=== PATIENT | female | born 1975 | race Caucasian/White ===

== ENCOUNTER 2017-03-21 20:51 | Inpatient (IN) | payer MEDICARE ==
[~2017-03-21] VITALS: Ht 167.6 cm; Wt 104.2 kg
--- NOTE | ~2017-03-21 | OP ---
PATIENT NAME: ANA MARIA KIM MEDICAL RECORD: [id number] :71 LOCATION:D. D.2111 ADMISSION DATE:03/22/17 SURGEON: JAYASHREE DALY MD DATE OF OPERATION: 03/28/2017 REFERRING PHYSICIAN: Dr. Benson. PREOPERATIVE DIAGNOSIS: End-stage renal disease. POSTOPERATIVE DIAGNOSIS: End-stage renal disease. OPERATION PERFORMED: Ultrasound-guided and fluoroscopic guided insertion of a tunneled dialysis catheter via the right internal jugular vein. SURGEON: Jayashree Daly MD ANESTHESIA: Local MAC with monitoring and sedation per BIG DATA ENGINEER. PREOPERATIVE NOTE: Mr. Kim is a 41-year-old male that needs hemodialysis and he is brought to the operating room for insertion of a tunneled catheter. DESCRIPTION OF PROCEDURE: With the patient under MAC and supine position, the right neck was prepped and draped in a sterile manner. The right internal jugular vein was located with the duplex ultrasound and it was noted to be of normal caliber and had no filling defects and be fully compressible. The skin and subcutaneous tissues over at the base of the neck were anesthetized with lidocaine. A small incision was made and a needle and guidewire then placed directly into the vein with continuous ultrasound guidance. A guidewire was advanced on into the right atrium under fluoroscopy. Serial dilators were passed again under fluoroscopy and lastly a dilator peel-away sheath was inserted. I chose a 19-cm HemoSplit and inserted it through a remote entry site and pulled it through a subcutaneous tunnel to the cervical incision where it was then inserted through the peel-away sheath as that was removed again under fluoroscopy. The tip of the catheter was positioned nicely in the right atrium and there were no kinks or any other apparent complications on fluoroscopy. The catheter lumens were both accessed and aspirated, free return of blood confirmed. They were then flushed with saline and lastly heparin lock, clamped and capped. The catheter was sutured to the skin near the entry site with 2-0 Prolene. The cervical incision was closed with interrupted inverted 3-0 Vicryl and Dermabond glue and sterile dressings were applied. The patient was awakened and taken to the recovery room in stable condition having tolerated the procedure well. TRANSINT:[id number] Voice Confirmation ID: [id number] DOCUMENT ID: [id number] JAYASHREE DALY MD at 1019 CC: RAGHAV BENSON [id number] DICTATION DATE: 04/01/17 1421 ORDER SELECTOR: 04/01/17 1449 DIS IN 03/30/17 [place] [address] [facility], [facility]
--- NOTE | ~2017-03-21 | DS ---
PATIENT:ANA MARIA KIM :71 MEDICAL RECORD: [id number] DISCHARGE SUMMARY ADMISSION DATE: 03/22/17 DISCHARGE DATE: REASON FOR ADMISSION: This is a female born on 1975, 41 years old, with end-stage renal disease and started dialysis and had a HemoSplit catheter placed. HOSPITAL COURSE: She is going to come back for fistula placement. She is alert and oriented times 3. Normocephalic, atraumatic. Clear nares. Clear throat. No JVD. Decrease in her breath sounds at bases has improved. No bleeding. She has end-stage renal disease due to diabetes. She does take home medications. She will continue to take her doxycycline for a total of 7 days, Cardura at night, amlodipine 10 mg a day, Pepcid 20 mg b.i.d., tramadol 50 q.12 hours p.r.n. pain, Eliquis 2.5 mg b.i.d., and Coreg 25 mg b.i.d. We will follow up on her home dialysis unit in [place] for Sunday, Sunday and Sunday dialysis. Spent greater than 30 minutes. Discussed fluid restriction, returning for a fistula, saving her nondominant arm with no blood pressure checks, phlebotomy, IVs, or any needles to the arm. Renal ADA diet. Stable on discharge. TRANSINT:[id number] Voice Confirmation ID: [id number] DOCUMENT ID: [id number] MANISHA BROWN MD CC: [id number] DICTATION DATE: 03/30/17 0959 TURKEY ROLL MAKER: 03/30/17 1204 ADM IN [place] [id number] [place] [address]
[2017-03-22] MEDS ORDERED: ZANTAC150 MG PO (01:15)
[2017-03-22] MEDS ORDERED: LEVEMIR100 U/M1 SC (01:15)
[2017-03-22] MEDS ORDERED: NORVASC10 MG PO (01:16)
[2017-03-22] MEDS ORDERED: NEURONTIN600 MG PO (01:16)
[2017-03-22] MEDS ORDERED: ELIQUIS5 MG PO (01:16)
[2017-03-22] MEDS ORDERED: ZOLOFT100 MG PO (01:17)
[2017-03-22] MEDS ORDERED: LASIX40 MG PO (01:17)
[2017-03-22] MEDS ORDERED: KLOR-CON 1010 MEQ PO (01:18)
[2017-03-22] MEDS ORDERED: COREG25 MG PO (01:18)
[2017-03-22] MEDS ORDERED: ZOCOR20 MG PO (01:19)
[2017-03-22] MEDS ORDERED: HUMALOG 30100 UNITS/ SC (01:20)
[2017-03-22 02:48] LABS: ANION GAP 17.9 mmol/L (8-16); BILIRUBIN - TOTAL 0.14 mg/dL (0.2-1.3); CALCIUM 7.9 mg/dL (8.5-10.1); CARBON DIOXIDE 20.4 mmol/L (21.0-32.0); CREATININE - SERUM 7.8 mg/dL (0.6-1.3); PHOSPHOROUS 7.2 mg/dL (2.5-4.9); POTASSIUM - SERUM 4.3 mmol/L (3.5-5.1); PROTEIN - SERUM 6.3 g/dL (6.4-8.2)
[2017-03-22 03:15] LABS: APPEARANCE CLEAR (CLEAR); BILIRUBIN NEGATIVE (NEGATIVE); COLOR STRAW (YELLOW); GLUCOSE 250 mg/dL (NEGATIVE); KETONE NEGATIVE (NEGATIVE); NITRITE NEGATIVE (NEGATIVE); PROTEIN 3+ mg/dL (NEGATIVE); UROBILINOGEN NORMAL (NORMAL)
[2017-03-22 03:16] LABS: BACTERIA MODERATE /hpf (NONE SEEN); EPITHELIAL CELLS 0-5 /hpf (0-5); RED CELLS - URINE 0-5 /hpf (0-5); WHITE CELLS - URINE 0-5 /hpf (0-5)
[2017-03-22 03:24] VITALS: BP 190/90; BMI 34.3; BMI 37.2
[2017-03-22 03:40] LABS: CREATININE - URINE 46.1 mg/dL (30-125)
[2017-03-22] MEDS ORDERED: ULTRAM50 MG PO (05:00)
[2017-03-22 06:06] VITALS: BP 182/80
[2017-03-22 09:55] VITALS: BMI 36.5
[2017-03-22 10:07] LABS: HEMOGLOBIN A1C 7.1 % (4.8-6.0)
[2017-03-22 10:10] LABS: COMPLEMENT C4 21.2 mg/dL (17.4-52.2)
[2017-03-22 10:34] VITALS: Ht 167.6 cm; Wt 104.2 kg
[2017-03-22 10:46] VITALS: BP 142/52
[2017-03-22 11:01] LABS: ERYTHROCYTE SEDIMENTATION RATE 125 mm/hr (0-20)
[2017-03-22 12:00] VITALS: BP 162/084
[2017-03-22 15:23] LABS: CREATININE - URINE 35.7 mg/dL (30-125)
[2017-03-22 15:28] LABS: APPEARANCE CLEAR (CLEAR); BILIRUBIN NEGATIVE (NEGATIVE); COLOR YELLOW (YELLOW); GLUCOSE 100 mg/dL (NEGATIVE); KETONE NEGATIVE (NEGATIVE); NITRITE NEGATIVE (NEGATIVE); PRO/CRE RATIO URINE 15.8 mg/g; PROTEIN 2+ mg/dL (NEGATIVE); PROTEIN - URINE 562.3 mg/dL (0.0-11.9); UROBILINOGEN NORMAL (NORMAL)
[2017-03-22 15:31] LABS: BACTERIA FEW /hpf (NONE SEEN); RED CELLS - URINE 0-5 /hpf (0-5)
[2017-03-22 16:00] VITALS: BP 176/088
[2017-03-22 20:00] VITALS: BP 158/74
[2017-03-23] VITALS (13 sets, daily range): BP systolic 130–166; BP diastolic 69–87
[2017-03-23 06:48] LABS: BASOPHILS 0.5 % (0-2); EOSINOPHILS 3.2 % (0-7); HEMATOCRIT 20.5 % (36.0-48.0); IMMATURE GRANULOCYTES 0.4 % (0-5); LYMPHOCYTES 29.4 % (15-50); MCH 29.3 pg (26.0-34.0); MCHC 32.2 g/dL (31.0-37.0); MCV 91.1 fL (80.0-100.0); MEAN PLATELET VOLUME 9.2 fL (7.4-10.4); MONOCYTES 7.3 % (2-11); NEUTROPHILS 59.2 % (40-80); PLATELET COUNT 258 10x3/uL (130-400); RBC 2.25 10x6/uL (4.00-5.40); WBC 8.2 10x3/uL (4.8-10.8)
[2017-03-23 06:54] LABS: HEMOGLOBIN 6.6 g/dL (12-16)
[2017-03-23 07:07] LABS: ANION GAP 15.1 mmol/L (8-16); CALCIUM 7.4 mg/dL (8.5-10.1); CARBON DIOXIDE 23.9 mmol/L (21.0-32.0); CREATININE - SERUM 7.7 mg/dL (0.6-1.3)
[2017-03-23 15:24] LABS: ANA REFLEX - DIRECT Negative (Negative)
[2017-03-24 05:43] LABS: BASOPHILS 0.4 % (0-2); EOSINOPHILS 3.3 % (0-7); IMMATURE GRANULOCYTES 0.5 % (0-5); LYMPHOCYTES 30.3 % (15-50); MCH 28.5 pg (26.0-34.0); MCHC 32.4 g/dL (31.0-37.0); MEAN PLATELET VOLUME 9.6 fL (7.4-10.4); MONOCYTES 7.9 % (2-11); NEUTROPHILS 57.6 % (40-80); PLATELET COUNT 236 10x3/uL (130-400); RDW 16.5 % (11.5-14.5); WBC 7.6 10x3/uL (4.8-10.8)
[2017-03-24 05:53] LABS: HEMATOCRIT 26.2 % (36.0-48.0); HEMOGLOBIN 8.5 g/dL (12-16); MCV 87.9 fL (80.0-100.0); RBC 2.98 10x6/uL (4.00-5.40)
[2017-03-24 05:58] LABS: ANION GAP 15.4 mmol/L (8-16); CARBON DIOXIDE 26.3 mmol/L (21.0-32.0); CREATININE - SERUM 7.4 mg/dL (0.6-1.3); POTASSIUM - SERUM 3.7 mmol/L (3.5-5.1)
[2017-03-24 05:59] LABS: CALCIUM 6.8 mg/dL (8.5-10.1)
[2017-03-24 06:23] LABS: ALBUMIN 1.9 g/dL (3.4-5.0)
[2017-03-24 08:01] VITALS: BP 185/93
[2017-03-24 09:21] VITALS: BP 133/52
[2017-03-24 11:53] VITALS: BP 170/84
[2017-03-24 15:06] VITALS: BP 130/65
[2017-03-24 20:00] VITALS: BP 160/81
[2017-03-25] VITALS: BP 160/57
[2017-03-25 05:27] LABS: BASOPHILS 0.4 % (0-2); HEMATOCRIT 28.6 % (36.0-48.0); HEMOGLOBIN 9.1 g/dL (12-16); IMMATURE GRANULOCYTES 0.3 % (0-5); LYMPHOCYTES 30.3 % (15-50); MCH 28.5 pg (26.0-34.0); MCHC 31.8 g/dL (31.0-37.0); MCV 89.7 fL (80.0-100.0); MEAN PLATELET VOLUME 9.6 fL (7.4-10.4); MONOCYTES 6.9 % (2-11); NEUTROPHILS 58.1 % (40-80); PLATELET COUNT 272 10x3/uL (130-400); RBC 3.19 10x6/uL (4.00-5.40); RDW 16.3 % (11.5-14.5); WBC 7.8 10x3/uL (4.8-10.8)
[2017-03-25 05:53] LABS: INR 0.99 (0.85-1.17); PROTIME 12.7 SECONDS (11.6-15.0)
[2017-03-25 07:44] LABS: ANION GAP 15.8 mmol/L (8-16); CALCIUM 7.5 mg/dL (8.5-10.1); CARBON DIOXIDE 24.3 mmol/L (21.0-32.0); CREATININE - SERUM 7.8 mg/dL (0.6-1.3); MAGNESIUM - SERUM 2.1 mg/dL (1.8-2.4); PHOSPHOROUS 7.4 mg/dL (2.5-4.9); POTASSIUM - SERUM 4.1 mmol/L (3.5-5.1)
[2017-03-25 08:01] VITALS: BP 173/98
[2017-03-25 11:26] VITALS: BP 156/87
[2017-03-25 15:52] VITALS: BP 158/81
[2017-03-25 20:00] VITALS: BP 155/65
[2017-03-26] VITALS: BP 178/79
[2017-03-26 04:00] VITALS: BP 163/87
[2017-03-26 05:36] LABS: BASOPHILS 0.5 % (0-2); EOSINOPHILS 3.8 % (0-7); HEMATOCRIT 27.4 % (36.0-48.0); HEMOGLOBIN 8.7 g/dL (12-16); IMMATURE GRANULOCYTES 0.3 % (0-5); LYMPHOCYTES 31.2 % (15-50); MCH 28.4 pg (26.0-34.0); MCHC 31.8 g/dL (31.0-37.0); MCV 89.5 fL (80.0-100.0); MEAN PLATELET VOLUME 9.9 fL (7.4-10.4); MONOCYTES 7.8 % (2-11); NEUTROPHILS 56.4 % (40-80); PLATELET COUNT 269 10x3/uL (130-400); RBC 3.06 10x6/uL (4.00-5.40); RDW 15.9 % (11.5-14.5); WBC 7.4 10x3/uL (4.8-10.8)
[2017-03-26 05:47] LABS: INR 0.86 (0.85-1.17); PROTIME 11.4 SECONDS (11.6-15.0)
[2017-03-26 06:22] LABS: ANION GAP 16.1 mmol/L (8-16); CALCIUM 7.6 mg/dL (8.5-10.1); CARBON DIOXIDE 24.1 mmol/L (21.0-32.0); CREATININE - SERUM 7.8 mg/dL (0.6-1.3); POTASSIUM - SERUM 4.2 mmol/L (3.5-5.1)
[2017-03-26 08:09] LABS: SPE - A/G RATIO 0.7 (0.7-1.7); SPE - ALBUMIN 2.3 g/dL (2.9-4.4); SPE - ALPHA-1 GLOBULIN 0.3 g/dL (0.0-0.4); SPE - ALPHA-2 GLOBULIN 1.2 g/dL (0.4-1.0); SPE - BETA GLOBULIN 0.8 g/dL (0.7-1.3); SPE - GAMMA GLOBULIN 0.8 g/dL (0.4-1.8); SPE - M-SPIKE Not Observed g/dL (Not Observed); SPE - TOTAL PROTEIN 5.4 g/dL (6.0-8.5)
[2017-03-26 08:20] VITALS: BP 156/69
[2017-03-26 09:09] LABS: ANTI-GLOMERULAR BASMENT MEMBRN 4 units (0-20)
[2017-03-26 12:19] VITALS: BP 152/85
[2017-03-26 16:00] VITALS: BP 136/73
[2017-03-26 16:11] LABS: ANCA - ANTIMYELOPEROXIDASE <9.0 U/mL (0.0-9.0); ANCA - ANTIPROTEINASE 3 <3.5 U/mL (0.0-3.5); ANCA - ATYPICAL <1:20 titer (Neg:<1:20); ANCA - CYTOPLASMIC <1:20 titer (Neg:<1:20); ANCA - PERINUCLEAR <1:20 titer (Neg:<1:20)
[2017-03-26 17:11] LABS: AEROBE ID Final report (())
[2017-03-26 21:32] VITALS: BP 127/57
[2017-03-27] VITALS: BP 156/67
[2017-03-27 05:43] LABS: BASOPHILS 0.7 % (0-2); EOSINOPHILS 3.4 % (0-7); HEMOGLOBIN 9.1 g/dL (12-16); IMMATURE GRANULOCYTES 0.3 % (0-5); LYMPHOCYTES 24.1 % (15-50); MCH 28.3 pg (26.0-34.0); MCHC 31.4 g/dL (31.0-37.0); MCV 90.1 fL (80.0-100.0); MEAN PLATELET VOLUME 9.7 fL (7.4-10.4); MONOCYTES 7.8 % (2-11); NEUTROPHILS 63.7 % (40-80); PLATELET COUNT 261 10x3/uL (130-400); RBC 3.22 10x6/uL (4.00-5.40); RDW 15.6 % (11.5-14.5); WBC 7.6 10x3/uL (4.8-10.8)
[2017-03-27 05:55] LABS: ANION GAP 15.5 mmol/L (8-16); CALCIUM 7.8 mg/dL (8.5-10.1); CARBON DIOXIDE 24.9 mmol/L (21.0-32.0); CREATININE - SERUM 8.6 mg/dL (0.6-1.3); POTASSIUM - SERUM 4.4 mmol/L (3.5-5.1)
[2017-03-27 06:05] VITALS: BP 138/64
[2017-03-27 07:26] LABS: UPE RAND - ALBUMIN 44.2 % (()); UPE RAND - ALPHA 1 GLOBULIN 10.2 % (()); UPE RAND - ALPHA 2 GLOBULIN 10.9 % (()); UPE RAND - BETA GLOBULIN 17.8 % (()); UPE RAND - GAMMA GLOBULIN 16.9 % (())
[2017-03-27 08:29] VITALS: BP 166/94
[2017-03-27 12:30] VITALS: BP 150/77
[2017-03-27 16:38] VITALS: BP 160/71
[2017-03-27 20:00] VITALS: BP 132/63
[2017-03-28] VITALS (7 sets, daily range): BP systolic 138–169; BP diastolic 59–82
[2017-03-28 06:23] LABS: ANION GAP 15.3 mmol/L (8-16); CALCIUM 7.7 mg/dL (8.5-10.1); CARBON DIOXIDE 22.2 mmol/L (21.0-32.0); CREATININE - SERUM 8.7 mg/dL (0.6-1.3); POTASSIUM - SERUM 4.5 mmol/L (3.5-5.1)
[2017-03-29 05:05] VITALS: BP 151/73
[2017-03-29 20:00] VITALS: BP 148/91
[2017-03-30] VITALS: BP 150/75
[2017-03-30 04:00] VITALS: BP 147/75
[2017-03-30 04:57] LABS: BASOPHILS 0.5 % (0-2); EOSINOPHILS 3.8 % (0-7); HEMATOCRIT 28.7 % (36.0-48.0); IMMATURE GRANULOCYTES 0.3 % (0-5); LYMPHOCYTES 22.1 % (15-50); MCH 28.3 pg (26.0-34.0); MCHC 31.4 g/dL (31.0-37.0); MCV 90.3 fL (80.0-100.0); MEAN PLATELET VOLUME 9.9 fL (7.4-10.4); MONOCYTES 6.2 % (2-11); NEUTROPHILS 67.1 % (40-80); PLATELET COUNT 246 10x3/uL (130-400); RBC 3.18 10x6/uL (4.00-5.40); RDW 15.3 % (11.5-14.5); WBC 7.5 10x3/uL (4.8-10.8)
[2017-03-30 05:18] LABS: ANION GAP 12.3 mmol/L (8-16); CALCIUM 7.6 mg/dL (8.5-10.1); CARBON DIOXIDE 25.8 mmol/L (21.0-32.0); CREATININE - SERUM 6.4 mg/dL (0.6-1.3); PHOSPHOROUS 6.3 mg/dL (2.5-4.9); POTASSIUM - SERUM 4.1 mmol/L (3.5-5.1)
[2017-03-30 08:00] VITALS: BP 161/77
[2017-03-30] MEDS ORDERED: ELIQUIS5 MG PO (09:34)
[2017-03-30] MEDS ORDERED: VIBRAMYCIN 100100 MG PO (10:01)
[2017-03-30] MEDS ORDERED: ULTRAM50 MG PO (10:01)
[2017-03-30 12:00] VITALS: BP 171/75
== END 2017-03-30 17:45 | disposition home or self-care (01) | DRG 286 ==
LOC: D.M2 20:51
PROVIDERS: Internal Medicine; Internal Medicine Nephrology; Surgery
PROC: B2141ZZ Fluoroscopy of Right Heart using Low Osmolar Contrast (ICD-10-PCS; 2017-03-28)
PROC: B244ZZZ Ultrasonography of Right Heart (ICD-10-PCS; 2017-03-28)
PROC: 5A1D70Z Performance of Urinary Filtration, Intermittent, Less than 6 Hours Per Day (ICD-10-PCS; 2017-03-28)
PROC: 02H633Z Insertion of Infusion Device into Right Atrium, Percutaneous Approach (ICD-10-PCS; principal; 2017-03-28 15:00)
DX: I13.2 Hypertensive heart and chronic kidney disease with heart failure and with stage 5 chronic kidney disease, or end stage renal disease (principal); N17.0 Acute kidney failure with tubular necrosis; N18.6 End stage renal disease; N39.0 Urinary tract infection, site not specified; E11.22 Type 2 diabetes mellitus with diabetic chronic kidney disease; E11.21 Type 2 diabetes mellitus with diabetic nephropathy; I50.9 Heart failure, unspecified; I25.10 Atherosclerotic heart disease of native coronary artery without angina pectoris; E11.649 Type 2 diabetes mellitus with hypoglycemia without coma; Z86.73 Personal history of transient ischemic attack (TIA), and cerebral infarction without residual deficits; K21.9 Gastro-esophageal reflux disease without esophagitis; B95.2 Enterococcus as the cause of diseases classified elsewhere; D64.9 Anemia, unspecified; N93.9 Abnormal uterine and vaginal bleeding, unspecified; E11.40 Type 2 diabetes mellitus with diabetic neuropathy, unspecified; Z79.4 Long term (current) use of insulin; Z72.0 Tobacco use

== ENCOUNTER 2017-05-15 07:16 | Day surgery (SDC) | payer MEDICARE ==
[~2017-05-15] VITALS: Ht 167.6 cm; Wt 97.7 kg
--- NOTE | ~2017-05-15 | OP ---
PATIENT NAME: ANA MARIA KIM MEDICAL RECORD: [id number] :71 LOCATION:BETSY ADMISSION DATE: SURGEON: JAYASHREE DALY MD DATE OF OPERATION: 05/15/2017 REFERRED BY: Manisha Brown MD PREOPERATIVE DIAGNOSIS: End-stage renal disease. POSTOPERATIVE DIAGNOSIS: End-stage renal disease. OPERATION PERFORMED: Creation of a left wrist Cathleen-type radiocephalic AV fistula. SURGEON: Jayashree Daly MD ANESTHESIA: Regional nerve block plus general per SOFTWARE QUALITY SPECIALIST with an LMA. PREOPERATIVE NOTE: Ms. Kim is a 41-year-old white female patient with end-stage renal disease, who needs long-term access. She is to have a left arm fistula created today. Under nerve block and general, in supine position, the patient was prepped and draped in sterile manner. I applied a Tonya drain as a proximal venous tourniquet and applied nitroglycerin paste to the intact skin of her arm and forearm. Under duplex Doppler examination, I confirmed the cephalic vein at the wrist to be suitable for the construction of a fistula. The artery, though a bit small at 2.5 mm, was clean without calcifications, so I elected to go ahead with a left wrist fistula as I had planned preop. I made a longitudinal incision at the wrist on the radial aspect and exposed the cephalic vein in the radial artery. The vessels were treated with topical papaverine. Hemostasis was obtained with electrocautery and very tiny Hemoclips. The vein was closed distally with a Hemoclip, transected, beveled, then flushed with heparinized saline, and distended hydrostatically. One small leak necessitated a [id number] 7-0 Prolene suture. The artery was occluded proximally and distally. It was opened for a distance of approximately 6 mm. It was flushed proximally and distally with heparinized saline. The end of vein was then anastomosed to the side of artery with running 7-0 Prolene. When the anastomosis was completed and the occluding loops and clamps released, excellent flow was immediately developed in the fistula and hemostasis was excellent. The wound was irrigated with saline. Marcaine was not infiltrated with the patient being under a regional block. The wound was closed with interrupted inverted 3-0 Vicryl and running intracuticular 4-0 Monocryl and Dermabond glue. It was dressed with Maxorb AG, Cavilon, and Tegaderm. The patient was awakened, and with a satisfactorily functioning new fistula, taken to the recovery room. Blood loss during the operation was essentially none, none was replaced. All sponges, instruments, and needles were accounted for. No drain was used and no surgical specimens submitted for histopathology. PLAN: The patient will be discharged to home today and return to see me in my office in 2 weeks. She was given a prescription for 10 tablets of [place] 5/325 one q. 4 hours p.r.n. pain. She will continue all her same home medications, renal diet, dialysis schedule, etc. See me in the office in 2 weeks. OPERATIVE REPORT [id number] ANA MARIA KIM TRANSINT:[id number] Voice Confirmation ID: [id number] DOCUMENT ID: [id number] JAYASHREE DALY MD at 1100 CC: MANISHA BROWN MD [id number] DICTATION DATE: 05/15/17 1235 SUPERVISOR ASPHALT PAVING: 05/15/17 1304 [facility] 05/15/17 [facility] [address] [place] [address]
[~2017-05-15 07:16] MED LIST: COREG25 MG PO; ELIQUIS5 MG PO; HUMALOG 30100 UNITS/ SC; KLOR-CON 1010 MEQ PO; LASIX40 MG PO; LEVEMIR100 U/M1 SC; NEURONTIN600 MG PO; NORVASC10 MG PO; ULTRAM50 MG PO; VIBRAMYCIN 100100 MG PO; ZANTAC150 MG PO; ZOCOR20 MG PO; ZOLOFT100 MG PO
[2017-05-15 09:01] LABS: BASOPHILS 0.4 % (0-2); EOSINOPHILS 3.5 % (0-7); HEMATOCRIT 31.1 % (36.0-48.0); HEMOGLOBIN 9.6 g/dL (12-16); IMMATURE GRANULOCYTES 0.4 % (0-5); LYMPHOCYTES 20.4 % (15-50); MCH 30.1 pg (26.0-34.0); MCHC 30.9 g/dL (31.0-37.0); MCV 97.5 fL (80.0-100.0); MEAN PLATELET VOLUME 10.2 fL (7.4-10.4); NEUTROPHILS 69.3 % (40-80); RBC 3.19 10x6/uL (4.00-5.40); RDW 18.4 % (11.5-14.5); WBC 11.3 10x3/uL (4.8-10.8)
[2017-05-15 09:06] LABS: APTT 26.5 SECONDS (22.8-39.4); INR 0.94 (0.85-1.17); PROTIME 12.2 SECONDS (11.6-15.0)
[2017-05-15 09:08] LABS: HCG SERUM NEGATIVE (NEGATIVE)
[2017-05-15 09:09] LABS: ANION GAP 12.1 mmol/L (8-16); CALCIUM 8.3 mg/dL (8.5-10.1); CREATININE - SERUM 5.4 mg/dL (0.6-1.3); POTASSIUM - SERUM 4.1 mmol/L (3.5-5.1)
[2017-05-15 09:10] LABS: PLATELET COUNT 172 10x3/uL (130-400)
[2017-05-15 09:13] VITALS: Ht 167.6 cm; Wt 97.7 kg
[2017-05-15] MEDS ORDERED: HYDROCODON-ACE1 EAC7 PO (12:27)
== END 2017-05-15 13:50 | disposition home or self-care (01) ==
LOC: D.OPS 07:16
PROVIDERS: Anesthesiology; Surgery
DX: E11.22 Type 2 diabetes mellitus with diabetic chronic kidney disease (principal); I13.2 Hypertensive heart and chronic kidney disease with heart failure and with stage 5 chronic kidney disease, or end stage renal disease; N18.6 End stage renal disease; Z99.2 Dependence on renal dialysis; F17.200 Nicotine dependence, unspecified, uncomplicated; K21.9 Gastro-esophageal reflux disease without esophagitis; B19.20 Unspecified viral hepatitis C without hepatic coma; Z01.812 Encounter for preprocedural laboratory examination

== ENCOUNTER 2019-05-29 00:02 | Inpatient (IN) | payer MEDICARE ==
[~2019-05-29] VITALS: Ht 167.6 cm; Wt 92.4 kg
[~2019-05-29 00:02] MED LIST changes: +HYDROCODON-ACE1 EAC7 PO
[2019-05-29] MEDS ORDERED: LISINOPRIL2.5 MG (00:13)
[2019-05-29] MEDS ORDERED: OMEPRAZOLE20 M1 PO (00:14)
--- NOTE | 2019-05-29 00:29 | NUR ---
PT TO RADIOLOGY AT THIS TIME.
[2019-05-29 00:35] LABS: BASOPHILS 0.1 % (0-2); EOSINOPHILS 0.4 % (0-7); HEMATOCRIT 30.1 % (36.0-48.0); HEMOGLOBIN 9.5 g/dL (12-16); IMMATURE GRANULOCYTES 0.9 % (0-5); LYMPHOCYTES 6.1 % (15-50); MCH 33.3 pg (26.0-34.0); MCHC 31.6 g/dL (31.0-37.0); MCV 105.6 fL (80.0-100.0); MEAN PLATELET VOLUME 9.8 fL (7.4-10.4); MONOCYTES 5.7 % (2-11); NEUTROPHILS 86.8 % (40-80); PLATELET COUNT 294 10x3/uL (130-400); RBC 2.85 10x6/uL (4.00-5.40); RDW 13.9 % (11.5-14.5); WBC 13.4 10x3/uL (4.8-10.8)
[2019-05-29 00:40] LABS: APTT 32.6 SECONDS (22.8-39.4); INR 1.18 (0.85-1.17)
[2019-05-29 00:56] LABS: ALBUMIN 2.8 g/dL (3.4-5.0); ALKALINE PHOSPHATASE 122 U/L (30-120); ALT (SGPT) 13 U/L (10-68); BILIRUBIN - TOTAL 0.39 mg/dL (0.2-1.3); CALC OSMOLALITY 274 mosm/kg (275-300); CALCIUM 8.2 mg/dL (8.5-10.1); CARBON DIOXIDE 24.6 mmol/L (21.0-32.0); CHLORIDE - SERUM 86 mmol/L (98-107); CKMB 0.6 U/L (0.0-3.6); CREATINE KINASE 24 UL (21-215); MAGNESIUM - SERUM 1.6 mg/dL (1.8-2.4); POTASSIUM - SERUM 3.9 mmol/L (3.5-5.1); PROTEIN - SERUM 7.8 g/dL (6.4-8.2); SODIUM 121 mmol/L (136-145); TROPONIN-I < 0.017 ng/mL (0.000-0.060); UREA NITROGEN 24 mg/dL (7-18); eGFR NON AFRICAN AMERICAN 10 mL/min (90-120)
[2019-05-29 00:59] LABS: GLUCOSE 579 mg/dL (74-106)
[2019-05-29 02:38] VITALS: BP 112/70
[2019-05-29] MEDS ORDERED: RENVELA800 MG PO (03:07)
--- NOTE | 2019-05-29 07:20 | NUR ---
AM ROUNDS COMPLETED. INTRODUCED MYSELF TO PT PRIMARY RN FOR TODAYS SHIFT. PT IS A&O SITTING UP ON EDGE OF BED RESTING QUIETLY. SHIFT ASSESSMENT COMPLETED. PT DENIES ANY CURRENT PAIN OR NEEDS AT THIS TIME. WILL REVIEW CHART AND ORDERS AND CPOC.
--- NOTE | 2019-05-29 09:49 | NUR ---
AM MEDICATIONS GIVEN ORDERED. PT ALSO REQUESTED PRN NORCO FOR CHRONIC PAIN AND WAS PROVIDED WITH IT. PT IS WATCHING TV AND STATES SHE HOPES TO DISCHARGE SOON. PLANS ARE FOR DIALYSIS TODAY AND THEN AGAIN IN THE AM TO GET HER BACK ON HER MWF SCHEDULE THEN DISCHARGE AFTER. DISCUSSED THIS WITH PT AND SHE VERBALIZED UNDERSTANDING. NO IMMEDIATE NEEDS AT THIS TIME. CL IN REACH, BED IN LOWEST, SIDE RAILS X2. WILL CPOC.
--- NOTE | 2019-05-29 10:36 | NUR ---
BROUGHT PT DOWN TO DIALYSIS VIA BED.
[2019-05-29 10:54] VITALS: BP 115/64
--- NOTE | 2019-05-29 11:03 | NUR ---
PT C/O ITCHING WITH DIALYSIS AND STATES SHE TAKES BENADRYL PRN FOR ITCHING. ORDER OBTAINED AND WILL BRING PT THE MEDICATION.
--- NOTE | 2019-05-29 11:46 | NUR ---
FSBS 281 PROVIDED PT WITH INSULIN PER SS. PT IN DIALYSIS AND I BROUGHT HER LUNCH TRAY THERE. NO CURRENT NEEDS. WILL CPOC.
--- NOTE | 2019-05-29 12:00 | NUR ---
CALLED PHARMACY REQUESTING PTS LONG ACTING INSULIN ORDERED. THEY STATE THEY WILL GET IT READY.
[2019-05-29 13:21] VITALS: Ht 167.6 cm; Wt 92.4 kg
--- NOTE | 2019-05-29 14:32 | NUR ---
CALLED PHARMACY FOR A THIRD TIME R/T PTS LONG ACTING INSULIN. STILL WAITING ON IT!!!
--- NOTE | 2019-05-29 14:33 | NUR ---
PT BACK FROM DIALYSIS AND STATES SHE HAD A GOOD TREATMENT. VSS. PT IS REQUESTING A SHOWER. DRAMATIC COACH AT BEDSIDE AND PROVIDED SUPPLIES AND WILL MONITER FOR SAFETY. NO CURRENT NEEDS.
[2019-05-29 16:00] VITALS: BP 154/84
--- NOTE | 2019-05-29 16:45 | MORECARE ---
CASE MANAGEMENT DISCHARGE SUMMARY PATIENT: ANA MARIA KIM UNIT: [id number] ADM DATE: 05/29/19 AGE: 43 : 71 SEX: F ROOM/BED: D.[facility] AUTHOR: ERIS CRAIG PHYSICIAN: REFERRING PHYSICIAN: NORMAN TAPIA DO DATE OF SERVICE: 05/29/19 Discharge Plan Patient Name: ANA MARIA KIM [facility] [facility] 1975 Planned Disposition: Home Anticipated Discharge Date: 05/30/19 Discharge Date: Expected LOS: 1 Initial Reviewer: [email or web address] Initial Review Date: 05/29/2019 Generated: 05/29/19 5:44 pm Patient Name: ANA MARIA KIM Page [phone] at 1645 All edits/amendments must be made on the electronic document DICTATION DATE: 05/29/191643 TESTER REGULATOR: KEL 05/29/191643 RPT#: [id number] DC DATE: STATUS: ADM IN [facility] [address] [place] [address] END OF REPORT
--- NOTE | 2019-05-29 16:51 | MORECARE ---
CASE MANAGEMENT DISCHARGE SUMMARY PATIENT: ANA MARIA KIM UNIT: [id number] ADM DATE: 05/29/19 AGE: 43 : 71 SEX: F ROOM/BED: D.4079 AUTHOR: RAFA,DOC PHYSICIAN: REFERRING PHYSICIAN: NORMAN TAPIA DO DATE OF SERVICE: 05/29/19 Discharge Plan Patient Name: ANA MARIA KIM Facility: [facility]:[place] : 1975 Planned Disposition: Home Anticipated Discharge Date: 05/30/19 Discharge Date: Expected LOS: 1 Initial Reviewer: [email or web address] Initial Review Date: 05/29/2019 Generated: 05/29/19 5:51 pm Comments DCP- Discharge Planning Updated by [email or web address]: Mckay Briones on 05/29/19 3:[address] Patient Name: ANA MARIA KIM Admission Status: ER Accout number: [id number] Admission Date: 05-29-2019 : 1975 Admission Diagnosis: Attending: JUSTICE Current LOS: 1 Anticipated DC Date: 05-30-2019 Planned Disposition: Home Primary Insurance: MEDICARE A & B Discharge Planning Comments: CM MET WITH PT IN ROOM TO DISCUSS DISCHARGE PLANNING AND NEEDS. PT REPORTS LIVING AT HOME INDEPENDENTLY WITH BOYFRIEND. PT HAS CPAP, NEBULIZER AND NIGHT TIME OXYGEN FROM [facility], [place]. PT HAS NO OUTSIDE SERVICES ASSISTING IN THE HOME. [facility] 1200 [facility] VIA MEDICAID TRANSPORT OR BOYFRIEND DRIVING. CM DISCUSSED AVAILABILITY OF HOME HEALTH, REHAB SERVICES AND MEDICAL EQUIPMENT. PT DENIES DISCHARGE NEEDS, REPORTS HER BOYFRIEND WILL PICK HER UP TOMORROW AFTER DIALYSIS HERE FOR DISCHARGE HOME. Entrepreneurial Finance Professor: Mckay Briones DCPIA - Discharge Planning Initial Assessment Updated by [email or web address]: Mckay Briones on 05/29/19 4:46 pm * Is the patient Alert and Oriented? Yes * How many steps to enter\exit or inside your home? * PCP DR[facility] TORRES IN [place] * Pharmacy [facility] [place] * Preadmission Environment Home with Family * ADLs Independent * Equipment CPAP Nebulizer Oxygen * [facility] * List name and contact numbers for known caregivers / representatives who currently or will assist patient after discharge: ANNABELLA SOTO BOYFRIEND, * Verbal permission to speak to the caregivers and representatives has been obtained from the patient. N/A * Community resources currently utilized Other * Please name any agencies selected above. [place]PATIENT DIALYSIS, [place], F, [facility], MEDICAID TRANSPORT OR BOYFRIEND DRIVES * Additional services required to return to the preadmission environment? No * Can the patient safely return to the preadmission environment? Yes * Has this patient been hospitalized within the prior 30 days at any hospital? No Last DP export: 05/29/19 3:45 pm Patient Name: ANA MARIA KIM Page 36691 at 1651 All edits/amendments must be made on the electronic document DICTATION DATE: 05/29/191650 ESCROW CLERK: KEL 05/29/191650 RPT#: [id number] DC DATE: STATUS: ADM IN [facility] [address] [place] [address] END OF REPORT
--- NOTE | 2019-05-29 19:27 | NUR ---
REPORT RECEIVED, WILL CONTINUE POC. PATIENT IS AAOX4, RESTING WITH EYES CLOSED. NO S/S OF DISTRESS OBSERVED, RR EVEN AND UNLABORED ON ROOM AIR. PATIENT DENIES NEEDS AT THIS TIME. CL IN REACH, BED LOCKED AND LOWERED. WILL CTM.
[2019-05-29 20:00] VITALS: BP 112/64
[2019-05-30] VITALS: BP 138/69
[2019-05-30 04:00] VITALS: BP 143/73
--- NOTE | 2019-05-30 04:01 | NUR ---
I have reviewed this patient and I concur with the Shift Assessment completed by the Licensed Practical Nurse today this shift.
[2019-05-30 05:16] LABS: ALBUMIN 2.7 g/dL (3.4-5.0); ALKALINE PHOSPHATASE 114 U/L (30-120); ALT (SGPT) 15 U/L (10-68); BILIRUBIN - TOTAL 0.33 mg/dL (0.2-1.3); CALC OSMOLALITY 274 mosm/kg (275-300); CALCIUM 9.2 mg/dL (8.5-10.1); CARBON DIOXIDE 25.2 mmol/L (21.0-32.0); CHLORIDE - SERUM 93 mmol/L (98-107); CKMB 0.5 U/L (0.0-3.6); CREATINE KINASE 26 UL (21-215); CREATININE - SERUM 4.9 mg/dL (0.6-1.3); GLUCOSE 300 mg/dL (74-106); POTASSIUM - SERUM 3.8 mmol/L (3.5-5.1); PROTEIN - SERUM 7.9 g/dL (6.4-8.2); SODIUM 129 mmol/L (136-145); TROPONIN-I < 0.017 ng/mL (0.000-0.060); UREA NITROGEN 26 mg/dL (7-18); eGFR NON AFRICAN AMERICAN 10 mL/min (90-120)
[2019-05-30 07:23] LABS: BASOPHILS 0.2 % (0-2); EOSINOPHILS 1.6 % (0-7); HEMATOCRIT 29.6 % (36.0-48.0); HEMOGLOBIN 9.3 g/dL (12-16); IMMATURE GRANULOCYTES 1.1 % (0-5); LYMPHOCYTES 10.8 % (15-50); MCH 32.7 pg (26.0-34.0); MCHC 31.4 g/dL (31.0-37.0); MCV 104.2 fL (80.0-100.0); MEAN PLATELET VOLUME 9.4 fL (7.4-10.4); MONOCYTES 6.5 % (2-11); NEUTROPHILS 79.8 % (40-80); PLATELET COUNT 290 10x3/uL (130-400); RBC 2.84 10x6/uL (4.00-5.40); WBC 9.7 10x3/uL (4.8-10.8)
--- NOTE | 2019-05-30 12:20 | NUR ---
PT RESTING IN BED A/O X4. VSS. NG TUBE TUBE IN PLACE HOOKED UP TO SUCTION. PT TO CALL WHEN HE IS READY FOR BOWEL MOVEMENT TO COLLECT SAMPLE. BED LOW CALL LIGHT WITHIN REACH. WILL CONTINUE TO MONITOR.
--- NOTE | 2019-05-30 12:27 | NUR ---
PT IN DIAYLSIS AT THIS TIME. D/C INSTRUCTIONS AND PAPERWORK GIVEN TO PT. IV D/C'D WITHOUT PROBLEM.
--- NOTE | 2019-05-30 20:54 | MORECARE ---
CASE MANAGEMENT DISCHARGE SUMMARY PATIENT: ANA MARIA KIM UNIT: [id number] ADM DATE: 05/29/19 AGE: 43 : 71 SEX: F ROOM/BED: D.1989 AUTHOR: RAFA,DOC PHYSICIAN: REFERRING PHYSICIAN: NORMAN TAPIA DO DATE OF SERVICE: 05/30/19 Discharge Plan Patient Name: ANA MARIA KIM Facility: [facility]:[place] : 1975 Planned Disposition: Home Anticipated Discharge Date: 05/30/19 Discharge Date: 05/30/2019 Expected LOS: 1 Initial Reviewer: [email or web address] Initial Review Date: 05/29/2019 Generated: 05/30/19 9:53 pm Comments DCP- Discharge Planning Updated by [email or web address]: Mckay Briones on 05/29/19 3:[address] Patient Name: ANA MARIA KIM Admission Status: ER Accout number: [id number] Admission Date: 05-29-2019 : 1975 Admission Diagnosis: Attending: JUSTICE Current LOS: 1 Anticipated DC Date: 05-30-2019 Planned Disposition: Home Primary Insurance: MEDICARE A & B Discharge Planning Comments: CM MET WITH PT IN ROOM TO DISCUSS DISCHARGE PLANNING AND NEEDS. PT REPORTS LIVING AT HOME INDEPENDENTLY WITH BOYFRIEND. PT HAS CPAP, NEBULIZER AND NIGHT TIME OXYGEN FROM [facility] [place]. PT HAS NO OUTSIDE SERVICES ASSISTING IN THE HOME. [facility] [place] 1200 [facility] VIA MEDICAID TRANSPORT OR BOYFRIEND DRIVING. CM DISCUSSED AVAILABILITY OF HOME HEALTH, REHAB SERVICES AND MEDICAL EQUIPMENT. PT DENIES DISCHARGE NEEDS, REPORTS HER BOYFRIEND WILL PICK HER UP TOMORROW AFTER DIALYSIS HERE FOR DISCHARGE HOME. Iron Cutter: Mckay Briones DCPIA - Discharge Planning Initial Assessment Updated by [email or web address]: Mckay Briones on 05/29/19 4:46 pm * Is the patient Alert and Oriented? Yes * How many steps to enter\exit or inside your home? * PCP DR[facility] TORRES IN [place] * Pharmacy [facility] [place] * Preadmission Environment Home with Family * ADLs Independent * Equipment CPAP Nebulizer Oxygen * Other Equipment NIGHT TIME OXYGEN - [facility] [place] * List name and contact numbers for known caregivers / representatives who currently or will assist patient after discharge: ANNABELLA SOTO, BOYFRIEND, * Verbal permission to speak to the caregivers and representatives has been obtained from the patient. N/A * Community resources currently utilized Other * Please name any agencies selected above. [facility], [facility], [facility], MEDICAID TRANSPORT OR BOYFRIEND DRIVES * Additional services required to return to the preadmission environment? No * Can the patient safely return to the preadmission environment? Yes * Has this patient been hospitalized within the prior 30 days at any hospital? No Last DP export: 05/29/19 3:51 pm Patient Name: ANA MARIA KIM Page [phone] at 2054 All edits/amendments must be made on the electronic document DICTATION DATE: 05/30/192052 RUG DRY ROOM ATTENDANT: KEL 05/30/192052 RPT#: [id number] DC DATE:05/30/19 STATUS: DIS IN [facility] [address] [place] [address] END OF REPORT
== END 2019-05-30 13:34 | disposition home or self-care (01) | DRG 291 ==
LOC: D.ER 00:02 → D.M2 01:44 → OBSVTIME 01:44 → D.M2 15:02
PROVIDERS: Family Medicine; ADMIT Internal Medicine; ATTEND Internal Medicine
PROC: 5A1D70Z Performance of Urinary Filtration, Intermittent, Less than 6 Hours Per Day (ICD-10-PCS; principal; 2019-05-29)
DX: I13.2 Hypertensive heart and chronic kidney disease with heart failure and with stage 5 chronic kidney disease, or end stage renal disease (principal); N18.6 End stage renal disease; E87.1 Hypo-osmolality and hyponatremia; N17.9 Acute kidney failure, unspecified; Z91.15 Patient's noncompliance with renal dialysis; D63.1 Anemia in chronic kidney disease; E11.22 Type 2 diabetes mellitus with diabetic chronic kidney disease; Z99.2 Dependence on renal dialysis; R51 Headache; W06.XXXA Fall from bed, initial encounter; I50.9 Heart failure, unspecified; E11.65 Type 2 diabetes mellitus with hyperglycemia; Z86.73 Personal history of transient ischemic attack (TIA), and cerebral infarction without residual deficits; F17.200 Nicotine dependence, unspecified, uncomplicated